=== PATIENT | male | born 1990 | race Caucasian/White ===

== ENCOUNTER 2018-03-19 11:37 | Inpatient (IN) ==
[2018-03-19] MEDS ORDERED: HYDROmorphone 2 MG/1 ML VIAL IV STA (13:24)
[2018-03-19] MEDS ORDERED: ONDANSETRON 4 MG/2 ML VIAL IV STA (13:24)
[2018-03-19] MEDS ORDERED: KETOROLAC 30 MG/1 ML VIAL IV STA (13:24)
[2018-03-19] MEDS ORDERED: SODIUM CHLORIDE 0.9% 1,000 ML IV STA (13:24)
[2018-03-19 14:24] LABS: Basophils % 0.1 % (0.0-0.8); Hematocrit 41.2 VOL% (42.0-52.0); Hemoglobin 14.4 GM/DL (14.0-18.0); Immature Granulocytes % 0.7 %; Immature Granulocytes Absolute 0.08 #; Lymphocytes # 0.7 10*3/uL (1.4-4.0); Mean Corpuscular Hemoglobin 30 PG (27-34); Mean Corpuscular Volume 84.9 FL (87-102); Monocytes # 1.3 10*3/uL (0.11-0.8); Monocytes % 10.7 % (1.7-12.7); Neutrophils # 9.9 10*3/uL (1.4-7.4); Neutrophils % 82.5 % (38.7-73.9); Platelet Count 213 T/CUMM (130-400); Red Blood Count 4.85 MC/CUMM (3.8-5.5); Red Cell Distribution Width 12.2 % (9.3-17.3)
[2018-03-19 15:28] LABS: Alanine Aminotransferase 18 U/L (16-61); Albumin 4.2 G/DL (3.4-5.0); Alkaline Phosphatase 71 U/L (45-117); Amylase 29 U/L (25-115); Aspartate Amino Transferase 18 U/L (0-37); Blood Urea Nitrogen 12 MG/DL (7-18); Calcium 9.4 MG/DL (8.5-10.1); Glucose 124 MG/DL (74-106); Osmolality,Calculated 262.7 MOS/KG (273-304); Potassium 3.3 MMOL/L (3.5-5.1); Sodium 131 MMOL/L (136-145); Total Protein 7.4 G/DL (6.4-8.3); Troponin I Only < 0.015 NG/ML (0.00-0.045)
[2018-03-19] MEDS ORDERED: POTASSIUM CHLORIDE 20 MEQ TABLET PO STA (15:34)
[2018-03-19] MEDS ORDERED: MAGNESIUM SULF RIDER 2 GM in PREMIX 1 EACH IV STA (15:34)
[2018-03-19 15:38] LABS: Apearance,Urine CLEAR (Clear); Bilirubin,Urine Negative (Negative); Blood, Urine Negative (Negative); Glucose,Urine (UA) Negative (Negative); Ketones,Urine 80 mg/dL (Negative); Nitrite,Urine Negative (Negative); Protein,Urine Negative; Urine Color Yellow (Yellow); Urine Specific Gravity 1.008 (1.001-1.035); Urine Urobilinogen < 2.0 EU/DL (0.2-1.0); WBC,Urine <1 /HPF (0-6)
[2018-03-19 15:44] LABS: Barbiturates Screen,Urine Negative (Negative); Benzodiazepines Screen,Urine Negative (Negative); Cannabinoid Screen,Urine Negative (Negative); Opiate Screen,Urine Positive (Negative); Phencyclidine Screen,Urine Negative (Negative)
[2018-03-19 16:41] LABS: Lactic Acid 0.8 MMOL/L (0.4-2.0)
[2018-03-19] MEDS ORDERED: PROMETHAZINE 25 MG/1 ML VIAL IM PRN (16:53)
[2018-03-19] MEDS ORDERED: diphenhydrAMINE 50 MG/1 ML VIAL IV PRN (16:53)
[2018-03-19] MEDS ORDERED: ACETAMINOPHEN 325 MG TABLET PO PRN (16:53)
[2018-03-19] MEDS: TAMSULOSIN 0.4 MG CAPSULE PO SCH (17:38)
[2018-03-19] MEDS: HYDROmorphone 2 MG/1 ML VIAL IV PRN ×2 (17:45→20:51)
[2018-03-19] MEDS: SODIUM CHLOR 0.9% KCL 20 MEQ 20 MEQ/1,000 ML BAG IV SCH (18:09)
[2018-03-19] MEDS: ONDANSETRON 4 MG/2 ML VIAL IV PRN (20:55)
[2018-03-19] MEDS: DOCUSATE SODIUM 100 MG CAPSULE PO SCH (20:57)
[2018-03-19] MEDS: FAMOTIDINE 20 MG TABLET PO SCH (20:57)
[2018-03-19 23:31] LABS: Calcium 8.1 MG/DL (8.5-10.1); Osmolality,Calculated 275.8 MOS/KG (273-304); Potassium 3.8 MMOL/L (3.5-5.1)
[2018-03-20] MEDS: SODIUM CHLOR 0.9% KCL 20 MEQ 20 MEQ/1,000 ML BAG IV SCH ×4 (00:35→21:44)
[2018-03-20] MEDS: HYDROmorphone 2 MG/1 ML VIAL IV PRN ×5 (00:35→20:09)
[2018-03-20] MEDS: ONDANSETRON 4 MG/2 ML VIAL IV PRN ×3 (00:39→20:13)
[2018-03-20 05:29] LABS: Basophils % 0.2 % (0.0-0.8); Eosinophils % 0.4 % (0.00-10.9); Hematocrit 35.4 VOL% (42.0-52.0); Hemoglobin 12.5 GM/DL (14.0-18.0); Immature Granulocytes % 0.5 %; Immature Granulocytes Absolute 0.04 #; Lymphocytes # 1.3 10*3/uL (1.4-4.0); Lymphocytes % 15.8 % (21.2-54.2); Mean Corpuscular HGB Conc 35.3 GM/DL (32-36); Mean Corpuscular Hemoglobin 30 PG (27-34); Mean Corpuscular Volume 85.3 FL (87-102); Mean Platelet Volume 11.4 FL (9.6-12.0); Monocytes # 1.1 10*3/uL (0.11-0.8); Monocytes % 12.6 % (1.7-12.7); Neutrophils # 5.9 10*3/uL (1.4-7.4); Neutrophils % 70.5 % (38.7-73.9); Platelet Count 179 T/CUMM (130-400); Red Blood Count 4.15 MC/CUMM (3.8-5.5); Red Cell Distribution Width 12.6 % (9.3-17.3); White Blood Count 8.4 T/CUMM (4-12)
[2018-03-20] MEDS: TAMSULOSIN 0.4 MG CAPSULE PO SCH (09:03)
[2018-03-20] MEDS: DOCUSATE SODIUM 100 MG CAPSULE PO SCH ×2 (09:03→21:45)
[2018-03-20] MEDS ORDERED: cefTRIAXone 1,000 MG in SYRINGE 1 EACH IV ONE (12:00)
[2018-03-20] MEDS ORDERED: GENTAMICIN 80 MG/2 ML VIAL ONE (16:47)
[2018-03-20] MEDS ORDERED: PROPOFOL 200 MG/20 ML VIAL IV ONE (17:28)
[2018-03-20] MEDS ORDERED: SEVOFLURANE 1 UNIT/15 MINUTE INH ONE (17:28)
[2018-03-20] MEDS ORDERED: fentaNYL 100 MCG/2 ML VIAL ONE (17:29)
[2018-03-20] MEDS ORDERED: GLYCOPYRROLATE 0.4 MG/2 ML VIAL ONE (17:29)
[2018-03-20] MEDS ORDERED: MIDAZOLAM 2 MG/2 ML VIAL ONE (17:29)
[2018-03-20] MEDS ORDERED: ROCURONIUM 100 MG/10 ML VIAL IV ONE (17:29)
[2018-03-20] MEDS ORDERED: NEOSTIGMINE 10 MG/10 ML VIAL ONE (17:30)
[2018-03-20] MEDS: FAMOTIDINE 20 MG TABLET PO SCH (21:45)
[2018-03-21] MEDS: HYDROmorphone 2 MG/1 ML VIAL IV PRN (00:23)
[2018-03-21] MEDS: ONDANSETRON 4 MG/2 ML VIAL IV PRN (00:28)
[2018-03-21] MEDS: SODIUM CHLOR 0.9% KCL 20 MEQ 20 MEQ/1,000 ML BAG IV SCH ×2 (02:23→06:16)
[2018-03-21 05:26] LABS: Basophils % 0.2 % (0.0-0.8); Eosinophils % 0.3 % (0.00-10.9); Hematocrit 36.7 VOL% (42.0-52.0); Immature Granulocytes % 0.5 %; Immature Granulocytes Absolute 0.04 #; Lymphocytes # 1.7 10*3/uL (1.4-4.0); Lymphocytes % 19.1 % (21.2-54.2); Mean Corpuscular HGB Conc 32.7 GM/DL (32-36); Mean Corpuscular Hemoglobin 29 PG (27-34); Mean Corpuscular Volume 89.1 FL (87-102); Mean Platelet Volume 11.7 FL (9.6-12.0); Monocytes # 1.4 10*3/uL (0.11-0.8); Monocytes % 15.6 % (1.7-12.7); Neutrophils # 5.6 10*3/uL (1.4-7.4); Neutrophils % 64.3 % (38.7-73.9); Platelet Count 183 T/CUMM (130-400); Red Blood Count 4.12 MC/CUMM (3.8-5.5); Red Cell Distribution Width 12.7 % (9.3-17.3); White Blood Count 8.7 T/CUMM (4-12)
[2018-03-21 06:03] LABS: Osmolality,Calculated 272.7 MOS/KG (273-304); Potassium 4.4 MMOL/L (3.5-5.1)
[2018-03-21 06:07] LABS: Lymphocytes 22 % (20-55); Segmented Neutrophils 70 % (50-85); Total Cells Counted 100
[2018-03-21 06:10] LABS: Platelet Estimate Adequate
[2018-03-21 06:12] LABS: Hypochromasia Slight
[2018-03-21] MEDS ORDERED: LEVOFLOXACIN INJ 500 MG in PREMIX 1 EACH IV SCH (09:00)
[2018-03-21] MEDS: TAMSULOSIN 0.4 MG CAPSULE PO SCH (09:31)
[2018-03-21] MEDS: DOCUSATE SODIUM 100 MG CAPSULE PO SCH (09:32)
[2018-03-21 11:52] VITALS: BP 131/59
== END 2018-03-21 15:00 | disposition home or self-care (01) | DRG 694 ==
LOC: N.ED 11:37 → N.EDINP 11:37 → N.5E 16:35
PROVIDERS: ADMIT Surgery; ATTEND Surgery